=== PATIENT | male | born 1975 | race Caucasian/White ===

== ENCOUNTER 2018-09-19 13:15 | Emergency (ER) | payer OTHER ==
[~2018-09-19] VITALS: Ht 188 cm; Wt 80.7 kg
[~2018-09-19 13:15] MED LIST: HYDROCODON-ACE1 EAC7 PO; PEPCID40 MG PO; ZOLOFT25 MG PO
[2018-09-19] MEDS ORDERED: CELEXA10 MG PO (13:34)
[2018-09-19 14:13] LABS: ABSOLUTE BASOPHILS 0.1 thou/uL (0.0-0.2); ABSOLUTE MONOCYTES 0.7 thou/uL (0.0-1.2); ABSOLUTE NEUTROPHILS 4.7 thou/uL (1.6-8.1); BASOPHILS 0.7 %; EOSINOPHILS 0.6 %; HEMATOCRIT 44.3 % (42.0-52.0); HEMOGLOBIN 15.5 gm/dL (14.0-18.0); LYMPHOCYTES 26.3 %; MCH 31.9 pg (26.0-34.0); MCHC 35.1 g/dL (28.0-37.0); MCV 91.1 fL (80.0-100.0); MONOCYTES 9.4 %; MPV 8.7 fl. (7.2-11.1); NUCLEATED RBCS 0 /100WBC; PLATELET COUNT* 167 thou/uL (150-400); RBC 4.87 mil/uL (4.50-6.00); RDW-CV 13.4 % (10.5-14.5); WBC 7.5 thou/uL (4.0-11.0)
[2018-09-19 14:20] LABS: CALCIUM 8.8 mg/dL (8.5-10.1); CREATININE 0.7 mg/dL (0.6-1.3); POTASSIUM 3.6 mmol/L (3.5-5.1)
[2018-09-19 14:25] LABS: ALBUMIN 3.8 g/dL (3.4-5.0); TOTAL BILIRUBIN 0.7 mg/dL (<0.1-1.0); TOTAL PROTEIN 7.6 g/dL (6.4-8.2)
[2018-09-19] MEDS ORDERED: ZOFRAN ODT4 MG DISSOLVE (15:01)
[2018-09-19] MEDS ORDERED: ZPAK PO (15:01)
[2018-09-19] MEDS ORDERED: BENTYL 20 MG TA20 M1 PO (15:01)
[2018-09-19] MEDS ORDERED: CARAFATE 1 GM TA1 G1 PO (15:01)
[2018-09-19 15:21] VITALS: BP 115/75
== END 2018-09-19 15:22 | disposition home or self-care (01) ==
LOC: M.ERS 13:15
PROVIDERS: Emergency Medicine Emergency Medical Services
DX: R10.84 Generalized abdominal pain (principal); R19.7 Diarrhea, unspecified; R11.2 Nausea with vomiting, unspecified; F41.9 Anxiety disorder, unspecified; Z88.8 Allergy status to other drugs, medicaments and biological substances; Z87.442 Personal history of urinary calculi

== ENCOUNTER 2019-04-19 21:44 | Emergency (ER) | payer OTHER ==
[~2019-04-19] VITALS: Ht 188 cm; Wt 77.1 kg
[~2019-04-19 21:44] MED LIST changes: +BENTYL 20 MG TA20 M1 PO; +CARAFATE 1 GM TA1 G1 PO; +CELEXA10 MG PO; +ZOFRAN ODT4 MG DISSOLVE; +ZPAK PO
[2019-04-19 22:04] LABS: ABSOLUTE BASOPHILS 0.1 thou/uL (0.0-0.2); ABSOLUTE EOSINOPHILS 0.1 thou/uL (0.0-0.7); ABSOLUTE LYMPHOCYTES 1.8 thou/uL (0.8-5.3); ABSOLUTE MONOCYTES 0.5 thou/uL (0.0-1.2); ABSOLUTE NEUTROPHILS 8.4 thou/uL (1.6-8.1); BASOPHILS 0.6 %; EOSINOPHILS 0.6 %; HEMATOCRIT 44.9 % (42.0-52.0); HEMOGLOBIN 15.7 gm/dL (14.0-18.0); LYMPHOCYTES 16.6 %; MCH 32.5 pg (26.0-34.0); MCHC 34.9 g/dL (28.0-37.0); MCV 93.2 fL (80.0-100.0); MONOCYTES 4.3 %; MPV 8.3 fl. (7.2-11.1); NUCLEATED RBCS 0 /100WBC; PLATELET COUNT* 184 thou/uL (150-400); POLYS 77.9 %; RBC 4.82 mil/uL (4.50-6.00); RDW-CV 13.4 % (10.5-14.5); WBC 10.8 thou/uL (4.0-11.0)
[2019-04-19 22:08] LABS: CREATININE 0.8 mg/dL (0.6-1.3); POTASSIUM 3.5 mmol/L (3.5-5.1)
[2019-04-19 22:12] LABS: ALBUMIN 3.9 g/dL (3.4-5.0); TOTAL BILIRUBIN 0.4 mg/dL (<0.1-1.0); TOTAL PROTEIN 7.8 g/dL (6.4-8.2)
[2019-04-19 23:14] LABS: URINE BILIRUBIN NEGATIVE (Negative); URINE BLOOD 1+ (Negative); URINE CLARITY CLEAR; URINE COLOR YELLOW; URINE GLUCOSE-RANDOM NEGATIVE (Negative); URINE KETONES NEGATIVE (Negative); URINE LEUKOCYTES-REFLEX 1+ (Negative); URINE NITRITE-REFLEX NEGATIVE (Negative); URINE PROTEIN TRACE (Negative); URINE UROBILINOGEN 0.2 E.U./dl (0.2-1.0)
[2019-04-19 23:28] LABS: AMP/METHAMP Negative (Negative); BARBITURATES Negative (Negative); BENZODIAZEPINES Negative (Negative); CASTS None Seen /LPF (None Seen); COCAINE Negative (Negative); METHADONE Negative (Negative); OPIATES POSITIVE (Negative); PCP Negative (Negative); SQUAMOUS 0-3 Few /LPF (0-3); THC POSITIVE (Negative)
[2019-04-19 23:29] LABS: URINE WBC-REFLEX 0-5 Rare /HPF (0-5)
[2019-04-19 23:30] LABS: BACTERIA-REFLEX 1-9 Few /HPF (None Seen); CRYSTALS None Seen /LPF (None Seen); URINE RBC 0-2 Rare /HPF (0-2)
[2019-04-20] MEDS ORDERED: PEPCID20 MG PO (00:03)
[2019-04-20] MEDS ORDERED: PERCOCET 7.5-31 EAC1 PO (00:03)
[2019-04-20 01:08] VITALS: BP 98/50
== END 2019-04-20 01:22 | disposition home or self-care (01) ==
LOC: M.ERS 21:44
PROVIDERS: Emergency Medicine
DX: N20.0 Calculus of kidney (principal); R11.2 Nausea with vomiting, unspecified; F41.9 Anxiety disorder, unspecified; Z87.442 Personal history of urinary calculi; Z88.8 Allergy status to other drugs, medicaments and biological substances

== ENCOUNTER 2019-05-04 12:23 | Emergency (ER) | payer OTHER ==
[~2019-05-04] VITALS: Ht 188 cm; Wt 74.8 kg
[~2019-05-04 12:23] MED LIST changes: +PEPCID20 MG PO; +PERCOCET 7.5-31 EAC1 PO
[2019-05-04 13:14] LABS: ABSOLUTE BASOPHILS 0.1 thou/uL (0.0-0.2); ABSOLUTE EOSINOPHILS 0.1 thou/uL (0.0-0.7); ABSOLUTE LYMPHOCYTES 1.6 thou/uL (0.8-5.3); ABSOLUTE MONOCYTES 0.9 thou/uL (0.0-1.2); ABSOLUTE NEUTROPHILS 9.7 thou/uL (1.6-8.1); BASOPHILS 0.6 %; EOSINOPHILS 0.8 %; HEMATOCRIT 43.2 % (42.0-52.0); HEMOGLOBIN 15.2 gm/dL (14.0-18.0); LYMPHOCYTES 13.2 %; MCH 32.3 pg (26.0-34.0); MCHC 35.2 g/dL (28.0-37.0); MCV 91.8 fL (80.0-100.0); MONOCYTES 7.6 %; MPV 8.2 fl. (7.2-11.1); NUCLEATED RBCS 0 /100WBC; PLATELET COUNT* 172 thou/uL (150-400); POLYS 77.8 %; RDW-CV 13.1 % (10.5-14.5); WBC 12.4 thou/uL (4.0-11.0)
[2019-05-04 13:22] LABS: URINE BILIRUBIN NEGATIVE (Negative); URINE BLOOD 1+ (Negative); URINE CLARITY CLEAR; URINE COLOR YELLOW; URINE GLUCOSE-RANDOM NEGATIVE (Negative); URINE KETONES NEGATIVE (Negative); URINE LEUKOCYTES-REFLEX TRACE (Negative); URINE NITRITE-REFLEX NEGATIVE (Negative); URINE PROTEIN NEGATIVE (Negative); URINE SPECIFIC GRAVITY 1.015 (1.005-1.030); URINE UROBILINOGEN 0.2 E.U./dl (0.2-1.0)
[2019-05-04 13:25] LABS: CALCIUM 8.6 mg/dL (8.5-10.1); CREATININE 0.8 mg/dL (0.6-1.3); POTASSIUM 3.8 mmol/L (3.5-5.1)
[2019-05-04 13:27] LABS: APTT 28.7 Seconds (25.0-31.3); PROTIME 10.7 Seconds (9.20-11.50)
[2019-05-04 13:30] LABS: ALBUMIN 3.7 g/dL (3.4-5.0); TOTAL BILIRUBIN 0.8 mg/dL (<0.1-1.0); TOTAL PROTEIN 7.6 g/dL (6.4-8.2)
[2019-05-04 13:34] LABS: SQUAMOUS NONE SEEN /LPF (0-3)
[2019-05-04 13:35] LABS: BACTERIA-REFLEX None Seen /HPF (None Seen); CASTS None Seen /LPF (None Seen); CRYSTALS None Seen /LPF (None Seen); MUCUS 4-6 Moderate strn/LPF (None Seen); URINE RBC 0-2 Rare /HPF (0-2); URINE WBC-REFLEX 0-5 Rare /HPF (0-5)
[2019-05-04] MEDS ORDERED: ONDANSETRON HCL4 M3 PO (13:38)
[2019-05-04] MEDS ORDERED: BACTRIM DS TAB1 EAC1 PO (13:39)
[2019-05-04 14:04] VITALS: BP 128/73
--- NOTE | 2019-05-05 12:31 | EKG ---
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[place] : 1975 Requested By: Maribell lAston Order Number: [id number] MD: Jose Alejandro Reed Measurements Intervals [place] Rate: 63 P: 69 [place]: 135 QRS: 69 QRSD: 86 T: 57 QT: 402 QTc: 412 Interpretive Statements Sinus rhythm Baseline wander in lead(s) V3 Compared to ECG 06/11/2016 08:06:51 No significant changes Electronically Signed On 05-05-2019 12:30:30 OTOLARYNGOLOGY SURGEON by Jose Alejandro Reed [email or web address] <ELECTRONICALLY SIGNED> By: Jose Alejandro Reed MD, [facility] 05/05/19 1230 1250 1250 Jose Alejandro Reed MD, FACC /EPI
== END 2019-05-04 14:04 | disposition home or self-care (01) ==
LOC: M.ERS 12:23
PROVIDERS: Physician Assistant
DX: N20.0 Calculus of kidney (principal); R11.2 Nausea with vomiting, unspecified; Z88.8 Allergy status to other drugs, medicaments and biological substances; Z86.19 Personal history of other infectious and parasitic diseases

== ENCOUNTER 2019-11-29 08:53 | Emergency (ER) | payer OTHER, MEDICAID ==
[~2019-11-29] VITALS: Ht 188 cm; Wt 79.4 kg
[~2019-11-29 08:53] MED LIST changes: +BACTRIM DS TAB1 EAC1 PO; +ONDANSETRON HCL4 M3 PO
[2019-11-29 09:58] LABS: ABSOLUTE EOSINOPHILS 0.1 thou/uL (0.0-0.7); ABSOLUTE LYMPHOCYTES 1.7 thou/uL (0.8-5.3); ABSOLUTE MONOCYTES 0.8 thou/uL (0.0-1.2); ABSOLUTE NEUTROPHILS 5.5 thou/uL (1.6-8.1); BASOPHILS 0.3 %; EOSINOPHILS 0.8 %; HEMOGLOBIN 14.5 gm/dL (14.0-18.0); LYMPHOCYTES 20.8 %; MCHC 35.5 g/dL (28.0-37.0); MCV 93.2 fL (80.0-100.0); MONOCYTES 9.7 %; NUCLEATED RBCS 0 /100WBC; PLATELET COUNT* 179 thou/uL (150-400); POLYS 68.4 %
[2019-11-29 10:05] LABS: CALCIUM 8.3 mg/dL (8.5-10.1); CREATININE 0.8 mg/dL (0.6-1.3); POTASSIUM 3.6 mmol/L (3.5-5.1)
[2019-11-29 10:10] LABS: ALBUMIN 3.7 g/dL (3.4-5.0); TOTAL PROTEIN 7.1 g/dL (6.4-8.2)
[2019-11-29] MEDS ORDERED: ZOFRAN ODT4 MG PO (10:58)
[2019-11-29 11:00] VITALS: BP 117/77
== END 2019-11-29 11:02 | disposition home or self-care (01) ==
LOC: M.ERS 08:53
PROVIDERS: Personal Emergency Response Attendant
DX: K62.5 Hemorrhage of anus and rectum (principal); Z88.8 Allergy status to other drugs, medicaments and biological substances; Z87.442 Personal history of urinary calculi; Z86.19 Personal history of other infectious and parasitic diseases

== ENCOUNTER 2019-12-01 19:46 | Emergency (ER) | payer OTHER, MEDICAID ==
[~2019-12-01] VITALS: Ht 188 cm; Wt 79.4 kg
[~2019-12-01 19:46] MED LIST changes: +ZOFRAN ODT4 MG PO
[2019-12-01 20:43] VITALS: BP 120/70
== END 2019-12-01 20:44 | disposition home or self-care (01) ==
LOC: M.ERS 19:46
DX: S80.11XA Contusion of right lower leg, initial encounter (principal); Z88.6 Allergy status to analgesic agent; Z87.442 Personal history of urinary calculi; W18.40XA Slipping, tripping and stumbling without falling, unspecified, initial encounter; Y93.89 Activity, other specified; Y92.89 Other specified places as the place of occurrence of the external cause; Y99.9 Unspecified external cause status

== ENCOUNTER 2019-12-14 17:44 | Emergency (ER) | payer OTHER, MEDICAID ==
[~2019-12-14] VITALS: Ht 188 cm; Wt 79.4 kg
[2019-12-14] MEDS ORDERED: IBUPROFEN 600600 M1 PO (19:40)
[2019-12-14 20:05] VITALS: BP 135/90
== END 2019-12-14 20:06 | disposition home or self-care (01) ==
LOC: M.ERS 17:44
DX: S90.01XA Contusion of right ankle, initial encounter (principal); Z87.442 Personal history of urinary calculi; Z86.19 Personal history of other infectious and parasitic diseases; W22.8XXA Striking against or struck by other objects, initial encounter; Y93.89 Activity, other specified; Y92.89 Other specified places as the place of occurrence of the external cause; Y99.8 Other external cause status

== ENCOUNTER 2020-03-25 07:57 | Emergency (ER) | payer OTHER, MEDICAID ==
[~2020-03-25] VITALS: Ht 188 cm; Wt 79.4 kg
[~2020-03-25 07:57] MED LIST changes: +IBUPROFEN 600600 M1 PO
[2020-03-25] MEDS ORDERED: SUPER THERAVIT1 EACH PO (08:07)
[2020-03-25] MEDS ORDERED: [UNRECOGNIZED DRUG - OTHER] (08:07)
[2020-03-25 08:58] LABS: INFLUENZA A ANTIGEN Negative (Negative); INFLUENZA B ANTIGEN Negative (Negative)
[2020-03-25] MEDS ORDERED: ZOFRAN ODT4 MG DISSOLVE (09:06)
[2020-03-25 09:27] VITALS: BP 112/68
== END 2020-03-25 09:29 | disposition home or self-care (01) ==
LOC: M.ERS 07:57
PROVIDERS: Emergency Medicine Emergency Medical Services
DX: U07.1 COVID-19 (principal); F41.9 Anxiety disorder, unspecified; Z87.442 Personal history of urinary calculi; Z79.899 Other long term (current) drug therapy; Z88.8 Allergy status to other drugs, medicaments and biological substances

== ENCOUNTER 2020-04-14 16:02 | Emergency (ER) | payer OTHER, MEDICAID ==
[~2020-04-14] VITALS: Ht 185.4 cm; Wt 79.4 kg
[~2020-04-14 16:02] MED LIST changes: +SUPER THERAVIT1 EACH PO; +[UNRECOGNIZED DRUG - OTHER]
[2020-04-14] MEDS ORDERED: EPCLUSA 200 MG1 EACH PO (16:08)
[2020-04-14 16:38] LABS: ABSOLUTE EOSINOPHILS 0.1 thou/uL (0.0-0.7); ABSOLUTE LYMPHOCYTES 2.6 thou/uL (0.8-5.3); ABSOLUTE MONOCYTES 0.7 thou/uL (0.0-1.2); BASOPHILS 0.3 %; EOSINOPHILS 1.1 %; HEMATOCRIT 41.6 % (42.0-52.0); HEMOGLOBIN 14.5 gm/dL (14.0-18.0); MCH 31.6 pg (26.0-34.0); MCHC 34.8 g/dL (28.0-37.0); MCV 90.9 fL (80.0-100.0); MONOCYTES 8.4 %; NUCLEATED RBCS 0 /100WBC; PLATELET COUNT* 201 thou/uL (150-400); POLYS 59.2 %; RBC 4.58 mil/uL (4.50-6.00); WBC 8.4 thou/uL (4.0-11.0)
[2020-04-14 16:47] LABS: CALCIUM 8.7 mg/dL (8.5-10.1); POTASSIUM 3.3 mmol/L (3.5-5.1)
[2020-04-14 16:51] LABS: APTT 26.2 Seconds (25.0-31.3); PROTIME 10.9 Seconds (9.20-11.50)
[2020-04-14 17:02] LABS: ALBUMIN 3.8 g/dL (3.4-5.0); CK-MB MASS 1.1 ng/mL (<0.5-3.6); MAGNESIUM 1.8 mg/dL (1.8-2.4); TOTAL BILIRUBIN 0.5 mg/dL (<0.1-1.0); TOTAL PROTEIN 7.1 g/dL (6.4-8.2)
[2020-04-14 17:30] VITALS: BP 111/73
--- NOTE | 2020-04-15 14:05 | EKG ---
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 04/15/20 1405 1605 04 Krys Moore MD, [facility] /EPI
== END 2020-04-14 17:31 | disposition home or self-care (01) ==
LOC: M.ERS 16:02
PROVIDERS: Family Medicine
DX: R07.9 Chest pain, unspecified (principal); F41.9 Anxiety disorder, unspecified; Z79.899 Other long term (current) drug therapy; Z88.6 Allergy status to analgesic agent; Z88.8 Allergy status to other drugs, medicaments and biological substances; Z87.442 Personal history of urinary calculi

== ENCOUNTER 2020-09-26 00:19 | Emergency (ER) | payer OTHER, MEDICAID ==
[~2020-09-26] VITALS: Ht 188 cm; Wt 83.9 kg
[~2020-09-26 00:19] MED LIST changes: +EPCLUSA 200 MG1 EACH PO
[2020-09-26 00:43] LABS: ABSOLUTE EOSINOPHILS 0.1 thou/uL (0.0-0.7); ABSOLUTE LYMPHOCYTES 2.9 thou/uL (0.8-5.3); ABSOLUTE MONOCYTES 0.5 thou/uL (0.0-1.2); ABSOLUTE NEUTROPHILS 2.6 thou/uL (1.6-8.1); BASOPHILS 0.5 %; EOSINOPHILS 1.7 %; HEMATOCRIT 41.9 % (42.0-52.0); HEMOGLOBIN 14.6 gm/dL (14.0-18.0); LYMPHOCYTES 47.1 %; MCH 32.5 pg (26.0-34.0); MCHC 34.9 g/dL (28.0-37.0); MONOCYTES 8.8 %; MPV 7.9 fl. (7.2-11.1); NUCLEATED RBCS 0 /100WBC; PLATELET COUNT* 209 thou/uL (150-400); POLYS 41.9 %; RBC 4.51 mil/uL (4.50-6.00); RDW-CV 13.8 % (10.5-14.5); WBC 6.2 thou/uL (4.0-11.0)
[2020-09-26 00:49] LABS: APTT 24.7 Seconds (25.0-31.3); PROTIME 10.2 Seconds (9.20-11.50)
[2020-09-26 01:00] LABS: CALCIUM 8.7 mg/dL (8.5-10.1); CREATININE 0.7 mg/dL (0.6-1.3); POTASSIUM 3.8 mmol/L (3.5-5.1)
[2020-09-26 01:11] LABS: ALBUMIN 3.8 g/dL (3.4-5.0); TOTAL BILIRUBIN 0.3 mg/dL (<0.1-1.0); TOTAL PROTEIN 7.4 g/dL (6.4-8.2)
[2020-09-26 01:46] VITALS: BP 124/74
--- NOTE | 2020-09-26 14:21 | EKG ---
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[place] : 1975 Requested By: Lary Terry Order Number: [id number] MD: Jose Alejandro Reed Measurements Intervals [place] Rate: 70 P: 63 [place]: 152 QRS: 61 QRSD: 80 T: 48 QT: 374 QTc: 404 Interpretive Statements Sinus rhythm ST elev, probable normal early repol pattern Compared to ECG 04/14/2020 16:05:35 ST (T wave) deviation now present Electronically Signed On 09-26-2020 14:21:10 CDT by Jose Alejandro Reed [email or web address] <ELECTRONICALLY SIGNED> By: Jose Alejandro Reed MD, [facility] 09/26/20 1421 002 002 Jose Alejandro Reed MD, [facility] /EPI
== END 2020-09-26 01:46 | disposition home or self-care (01) ==
LOC: M.ERS 00:19
PROVIDERS: Personal Emergency Response Attendant
DX: F41.9 Anxiety disorder, unspecified (principal); Z88.6 Allergy status to analgesic agent; Z88.8 Allergy status to other drugs, medicaments and biological substances; Z87.442 Personal history of urinary calculi; Z86.19 Personal history of other infectious and parasitic diseases